=== PATIENT | female | born 1995 | race Caucasian/White ===

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

== ENCOUNTER → 2017-05-10 | Outpatient (REF) | payer OTHER | LOC: M LAB REF 16:21 | PROVIDERS: ATTEND Physician Assistant | DX: A60.04 Herpesviral vulvovaginitis (principal) ==

== ENCOUNTER → 2018-10-16 | Outpatient (REF) | payer OTHER | LOC: M SFHCLERA 18:22 | PROVIDERS: ATTEND Nurse Practitioner Family | DX: J02.9 Acute pharyngitis, unspecified (principal) ==